=== PATIENT | female | born 2000 | race Caucasian/White ===

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

== ENCOUNTER 2022-01-13 14:37 | Emergency (ER) | payer MEDICAID ==
[~2022-01-13] VITALS: Ht 157.5 cm; Wt 59.0 kg
[2022-01-13 14:58] VITALS: BP 117/54
--- NOTE | 2022-01-13 17:05 | NUR ---
Patient had not been in room for quite some time so I spoke with registration to see if patient and mother had come to them and left. Per registration patient and mother stated that because patient was not going to get admitted therefore nothing was going to be done. So they left. I spoke with Isaac QUEZADA regarding this and he stated that he had a call out to psychiatry for evaluation and possible medication adjustment, this was discussed with patient and mother when he left the patients room.
== END 2022-01-13 17:09 | disposition left against medical advice (07) ==
LOC: ER 14:38
DX: F41.9 Anxiety disorder, unspecified (principal); F31.9 Bipolar disorder, unspecified; F11.90 Opioid use, unspecified, uncomplicated; Z72.89 Other problems related to lifestyle; Z88.0 Allergy status to penicillin; Z79.2 Long term (current) use of antibiotics; Z79.899 Other long term (current) drug therapy
CPT/HCPCS: 99281

== ENCOUNTER 2022-05-20 00:11 | Emergency (ER) | payer MEDICAID ==
[2022-05-20 00:14] VITALS: BP 121/81
== END 2022-05-20 01:29 | disposition home or self-care (01) ==
LOC: ER 00:11
DX: Z04.1 Encounter for examination and observation following transport accident (principal); F31.9 Bipolar disorder, unspecified; F17.200 Nicotine dependence, unspecified, uncomplicated; F19.10 Other psychoactive substance abuse, uncomplicated; Z88.0 Allergy status to penicillin; V49.9XXA Car occupant (driver) (passenger) injured in unspecified traffic accident, initial encounter; Y93.89 Activity, other specified; Y92.89 Other specified places as the place of occurrence of the external cause; Y99.8 Other external cause status
CPT/HCPCS: 99283

== ENCOUNTER 2023-04-14 09:18 | Emergency (ER) | payer MEDICAID ==
[~2023-04-14] VITALS: Ht 160 cm; Wt 50.9 kg
[2023-04-14 09:30] VITALS: BP 114/61
[2023-04-14 10:32] LABS: URINE HCG NEGATIVE (NEG)
[2023-04-14 10:33] LABS: CLARITY,URINE CLEAR (Clear); COLOR,URINE YELLOW (Yellow); GLUCOSE, URINE NEGATIVE (Neg); KETONES,URINE NEGATIVE (Neg); LEUKOCYTE ESTERASE ,URINE NEGATIVE (Neg); NITRITES, URINE NEGATIVE (Neg); OCCULT BLOOD,URINE NEGATIVE (Neg); PH,URINE 5.5 (4.8-8.0); PROTEIN,URINE NEGATIVE (Neg); UROBILINOGEN,URINE 0.2 E.U/dL (0.2-1.0)
[2023-04-14 10:34] LABS: UA COLLECTION TYPE CLN CATCH MIDSTREAM
== END 2023-04-14 11:18 | disposition home or self-care (01) ==
LOC: ER 09:18
DX: O26.892 Other specified pregnancy related conditions, second trimester (principal); Z3A.18 18 weeks gestation of pregnancy; N80.9 Endometriosis, unspecified; F31.9 Bipolar disorder, unspecified; Z88.0 Allergy status to penicillin
CPT/HCPCS: 81003; 81025; 99283

== ENCOUNTER 2023-12-24 16:50 | Emergency (ER) | payer MEDICAID ==
[~2023-12-24] VITALS: Ht 157.5 cm; Wt 52.3 kg
[~2023-12-24 16:50] MED LIST changes: +RISP-31 PO; -RISP1TAB98 PO
[2023-12-24 16:53] VITALS: BP 143/92; PULSE 89; TEMP 97.8; O2SAT 100
[2023-12-24 18:11] VITALS: RESP 16
== END 2023-12-24 18:12 | disposition home or self-care (01) ==
LOC: ER 16:51
DX: R05.9 Cough, unspecified (principal); R06.02 Shortness of breath; F31.9 Bipolar disorder, unspecified; F11.10 Opioid abuse, uncomplicated; Z88.0 Allergy status to penicillin; Z79.899 Other long term (current) drug therapy
CPT/HCPCS: 71046; 86606; 99283

== ENCOUNTER 2024-03-06 15:30 | Emergency (ER) | payer MEDICAID ==
[~2024-03-06] VITALS: Ht 157.5 cm; Wt 57.8 kg
[2024-03-06] MEDS ORDERED: LITH600C PO (16:00)
[2024-03-06] MEDS ORDERED: PROP10TA10 PO (16:00)
[2024-03-06 16:30] LABS: BASOPHILS % (AUTO) 0.3 % (0-1); EOSINOPHILS # (AUTO) 0.1 X10'3 (0-0.9); EOSINOPHILS % (AUTO) 0.9 % (0-6); HEMATOCRIT 42.2 % (35.0-45.0); HEMOGLOBIN 14.3 g/dl (12.0-16.0); LYMPHOCYTES # (AUTO) 3.1 X10'3 (1.1-4.8); LYMPHOCYTES % (AUTO) 22.2 % (21-51); MEAN CORPUSCULAR HEMOGLOBIN 32.1 PG (27.0-31.0); MEAN CORPUSCULAR VOLUME 94.5 FL (78-98); MEAN PLATELET VOLUME 8.7 FL (7.4-10.4); MONOCYTES % (AUTO) 7.2 % (2-12); NEUTROPHILS # (AUTO) 9.6 X10'3 (1.8-7.7); NEUTROPHILS % (AUTO) 69.4 % (42-75); PLATELET COUNT 295 X10'3 (140-440); RED BLOOD COUNT 4.46 X10'6 (4.20-5.60); RED CELL DISTRIBUTION WIDTH 13.2 % (11.5-14.5); WHITE BLOOD COUNT 13.8 X10'3 (4.5-11.0)
[2024-03-06] MEDS ORDERED: LORazepam 1 MG tablet PO ONE (16:30)
[2024-03-06] MEDS: LORazepam 0.5 MG tablet PO ONE (16:33)
[2024-03-06 16:48] LABS: ALBUMIN 4.3 G/DL (3.4-5.0); ANION GAP 10 (8-16); BLOOD UREA NITROGEN 13 MG/DL (7-18); BUN/CREATININE RATIO 18.3 (10.0-20.0); CHLORIDE 104 MMOL/L (99-107); CREATININE 0.71 MG/DL (0.40-0.90); GLUCOSE 86 MG/DL (70-104); POTASSIUM 3.7 MMOL/L (3.5-5.1); SODIUM 141 MMOL/L (135-145); THYROID STIMULATING HORMONE 1.73 ulU/ml (0.34-4.50); TOTAL CARBON DIOXIDE 27.5 MMOL/L (24-32); eCRCL 99 ML/MIN; eGFR > 90 ML/MIN
[2024-03-06] MEDS: OLANZapine 5mg rapidly disint. tablet PO ONE (16:49)
[2024-03-06] MEDS: nicotine 21mg patch - 24 hr TD ONE (16:49)
[2024-03-06 16:52] LABS: ETHANOL < 10 MG/DL (<10)
[2024-03-06 17:50] LABS: URINE HCG NEGATIVE (NEG)
[2024-03-06 17:51] LABS: BILIRUBIN,URINE NEGATIVE (Neg); CLARITY,URINE CLEAR (Clear); COLOR,URINE YELLOW (Yellow); GLUCOSE, URINE NEGATIVE (Neg); KETONES,URINE NEGATIVE (Neg); LEUKOCYTE ESTERASE ,URINE NEGATIVE (Neg); NITRITES, URINE NEGATIVE (Neg); OCCULT BLOOD,URINE NEGATIVE (Neg); PROTEIN,URINE NEGATIVE (Neg); UROBILINOGEN,URINE 0.2 E.U/dL (0.2-1.0)
[2024-03-06 17:58] LABS: UA COLLECTION TYPE NON-SPECIFIED
[2024-03-06 18:03] LABS: URINE AMPHETAMINE SCREEN NEGATIVE (Neg); URINE BARBITUATE SCREEN NEGATIVE (Neg); URINE BENZODIAZEPINES SCREEN NEGATIVE (Neg); URINE CANNABINOID SCREEN NEGATIVE (Neg); URINE COCAINE SCREEN NEGATIVE (Neg); URINE METHADONE SCREEN NEGATIVE (Neg); URINE OPIATE SCREEN NEGATIVE (Neg); URINE PHENCYCLIDINE SCREEN NEGATIVE (Neg)
[2024-03-07] MEDS ORDERED: BUSP5TAB3 PO (01:38)
[2024-03-07] MEDS ORDERED: LAMO25TA5 PO (01:58)
[2024-03-07] MEDS ORDERED: NICO-668 MM (02:02)
[2024-03-07] MEDS: lamoTRIgine 25mg tablet PO SCH (07:46)
[2024-03-07] MEDS: propranolol 10mg tablet PO SCH (07:46)
[2024-03-07] MEDS: NICOTINE POLACRILEX 2 MG LOZENGE BC SCH (07:46)
[2024-03-07] MEDS: busPIRone 5mg tablet PO SCH (07:46)
[2024-03-07] MEDS: OLANZapine 2.5MG tablet PO ONE (13:45)
[2024-03-07] MEDS: LORazepam 0.5 MG tablet PO ONE (18:59)
[2024-03-07 19:40] VITALS: BP 106/62; PULSE 98; RESP 18; TEMP 98.2; O2SAT 98
[2024-03-07] MEDS ORDERED: lithium carbonate 150mg capsule PO SCH (21:00)
== END 2024-03-07 19:40 ==
LOC: ER 15:32
DX: Z00.8 Encounter for other general examination (principal); Z20.822 Contact with and (suspected) exposure to COVID-19; F41.9 Anxiety disorder, unspecified; F32.A Depression, unspecified; Z88.0 Allergy status to penicillin; Z79.899 Other long term (current) drug therapy; Z79.2 Long term (current) use of antibiotics
CPT/HCPCS: 36415; 80048; 80178; 80305; 80320; 81003; 81025; 84443; 85025; 87811; 99285

== ENCOUNTER 2024-03-20 14:16 | Outpatient (CLI) | payer MEDICAID ==
[~2024-03-20 14:16] MED LIST changes: -BUSP10TA11 PO; +BUSP5TAB3 PO; -CEPH250T PO; -LACT1CAP26 PO; +LAMO25TA5 PO; -LEVO25TA2 PO; -LIT300C PO; +LITH600C PO; -NICO-668 BC; +NICO-668 MM; -NICO-687 TD; +PROP10TA10 PO; -RISP-31 PO; -TRAZ-251 PO
== END 2024-03-20 23:59 | disposition home or self-care (01) ==
LOC: RAD 14:16
PROVIDERS: ATTEND Nurse Practitioner Family
DX: E28.2 Polycystic ovarian syndrome (principal)
CPT/HCPCS: 76830; 93976